=== PATIENT | male | born 1985 | race Two or more races ===

== ENCOUNTER 2021-03-02 03:28 | Inpatient (IN) | payer OTHER ==
[2021-03-02 04:37] VITALS: BMI 43.5
[2021-03-02] MEDS ORDERED: ACETAMINOPHEN 1000 MG/100 ML VIAL (NON FORMULARY) IVPB ONE (04:42)
[2021-03-02] MEDS ORDERED: SODIUM CHLORIDE 0.9% 1000 ML INFUS.BAG IV ONE (04:43)
[2021-03-02 04:50] LABS: BASO % 0.4 % (0-2.0); EOS % 0.1 % (0-4.5); HEMATOCRIT 42.2 % (35.4-49); HEMOGLOBIN 14.8 GM/dL (11.7-16.9); LYMPH % 33.6 % (8-40); MCH 33.5 pg (25.7-33.7); MCHC 35.2 g/dl (32.0-35.9); MEAN CELL VOLUME 95.3 fl (80-96); MEAN PLT VOLUME 9.7 fl (7.5-11.1); MONO % 6.2 % (3.8-10.2); NEUT % 59.7 % (42.8-82.8); PLATELET COUNT 136 10^3/uL (134-434); RBC 4.42 M/mm3 (4.00-5.60); RDW 12.8 % (11.9-15.9); WHITE BLOOD COUNT 4.3 K/mm3 (4.0-10.0)
[2021-03-02 04:57] LABS: INR 1.25 (0.83-1.09); PROTHROMBIN TIME (PATIENT) 15.3 SEC (9.7-13.0); VENOUS BASE EXCESS -0.3 mmol/L (-2-2); VENOUS O2 SATURATION 86.8 % (70-80); VENOUS PCO2 42.1 mmHg (38-52); VENOUS PH 7.388 (7.310-7.410)
[2021-03-02 05:00] LABS: ACTIVATED PTT 30.3 SECONDS (25.2-36.5)
[2021-03-02 05:09] LABS: CALCIUM 7.9 mg/dL (8.5-10.1)
[2021-03-02 05:10] LABS: ALBUMIN 3.2 g/dl (3.4-5.0); BLOOD UREA NITROGEN 9.9 mg/dL (7-18)
[2021-03-02 05:12] LABS: BILIRUBIN,DIRECT 0.1 mg/dL (0.0-0.2)
[2021-03-02 05:13] LABS: CREATININE 0.9 mg/dL (0.55-1.3)
[2021-03-02 05:14] LABS: BILIRUBIN,TOTAL 0.4 mg/dL (0.2-1)
[2021-03-02] MEDS ORDERED: DEXAMETHASONE SOD PHOSPHATE 10 MG/1 ML VIAL IVPUSH ONE (05:51)
[2021-03-02 06:59] LABS: EPI CELLS 12 /uL (0-25.1); HYALINE CASTS 4 /uL (0-3.1); URINE APPEARANCE CLEAR; URINE BACTERIA 111 /uL (0-1359); URINE BILIRUBIN NEGATIVE (NEGATIVE); URINE COLOR YELLOW; URINE GLUCOSE (UA) NEGATIVE (NEGATIVE); URINE KETONE TRACE (NEGATIVE); URINE LEUK ESTERASE NEGATIVE (NEGATIVE); URINE NITRITE NEGATIVE (NEGATIVE); URINE PROTEIN 1+ (NEGATIVE); URINE RBC 29 /uL (0-23.9); URINE WBC 10 /uL (0-25.8)
[2021-03-02] MEDS ORDERED: ALBUTEROL SO4 HFA INHALER IH PRN (08:15)
[2021-03-02] MEDS ORDERED: ASPIRIN 81 MG CHEWABLE TABLETS ONE (09:39)
[2021-03-02] MEDS ORDERED: amLODIPine BESYLATE 5 MG TABLET (FP) ONE (09:39)
[2021-03-02] MEDS ORDERED: ENOXAPARIN NA (PORCINE) 40 MG/0.4 ML DISP.SYRIN SQ ONE (09:40)
[2021-03-02] MEDS ORDERED: HYDROCHLOROTHIAZIDE 25 MG TABLET (FP) ONE (09:40)
[2021-03-02] MEDS ORDERED: FAMOTIDINE 20 MG TABLET ONE (09:40)
[2021-03-02] MEDS ORDERED: CLOPIDOGREL BISULFATE 75 MG TABLET (FP) ONE (09:40)
[2021-03-02] MEDS ORDERED: ZINC SULFATE 220 MG CAPSULE (FP) ONE (09:40)
[2021-03-02] MEDS ORDERED: VALSARTAN 80 MG TABLET ONE (09:43)
[2021-03-02] MEDS: amLODIPine BESYLATE 10 MG TABLET (FP) PO SCH (10:08)
[2021-03-02] MEDS: CLOPIDOGREL BISULFATE 75 MG TABLET (FP) PO SCH (10:08)
[2021-03-02] MEDS: FAMOTIDINE 20 MG TABLET PO SCH (10:08)
[2021-03-02] MEDS: ZINC SULFATE 220 MG CAPSULE (FP) PO SCH (10:08)
[2021-03-02] MEDS: ENOXAPARIN NA (PORCINE) 40 MG/0.4 ML DISP.SYRIN SQ SCH (10:08)
[2021-03-02] MEDS: CARVEDILOL 25 MG TABLET (FP) PO SCH ×2 (10:09→21:38)
[2021-03-02] MEDS: ASPIRIN 81 MG CHEWABLE TABLETS PO SCH (10:09)
[2021-03-02] MEDS: HYDROCHLOROTHIAZIDE 25 MG TABLET (FP) PO SCH (10:09)
[2021-03-02] MEDS: VALSARTAN 160 MG TABLET PO SCH (10:09)
[2021-03-02] MEDS ORDERED: CHOLECALCIFEROL (VIT D3) 1,000 UNIT (25 MCG) TABLET ONE (12:06)
[2021-03-02] MEDS ORDERED: ASCORBIC ACID 500 MG TABLET (FP) ONE (12:06)
[2021-03-02] MEDS ORDERED: PT OWN MED DRAWER 7, Y5N ONE ×2 (12:07→15:02)
[2021-03-02] MEDS ORDERED: ALBUTEROL SO4 HFA INHALER IH ONE (12:14)
[2021-03-02] MEDS: CHOLECALCIFEROL (VIT D3) 5000 UNITS (125 MCG) CAP PO SCH (12:24)
[2021-03-02] MEDS: ALBUTEROL SO4 HFA INHALER IH SCH ×3 (12:24→21:37)
[2021-03-02] MEDS: ASCORBIC ACID 250 MG TABLET (FP) PO SCH (12:24)
[2021-03-02] MEDS: BUDESONIDE/FORMETEROL FUMARATE 80/4.5 mcg INHALER IH SCH ×2 (13:02→21:39)
[2021-03-02] MEDS ORDERED: REMDESIVIR 200 MG in SODIUM CHLORIDE 250 ML IVPB ONE (14:00)
[2021-03-02] MEDS ORDERED: BARICITINIB 2 MG TABLET PO ONE ×2 (14:00)
[2021-03-02] MEDS ORDERED: ROSUVASTATIN CA 10 MG TABLET (FP) ONE (21:35)
[2021-03-02] MEDS: ROSUVASTATIN CA 20 MG TABLET (FP) PO SCH (21:38)
[2021-03-02] MEDS: ACETAMINOPHEN 500 MG TABLET (FP) PO PRN (21:38)
[2021-03-03] MEDS: guaiFENesin/D-METHORPHAN HB 10 ML UNIT-DOSE CUPS PO PRN ×2 (04:22→21:45)
[2021-03-03] MEDS: ACETAMINOPHEN 500 MG TABLET (FP) PO PRN ×2 (04:22→17:39)
[2021-03-03 06:30] LABS: HEMATOCRIT 39.9 % (35.4-49); HEMOGLOBIN 13.8 GM/dL (11.7-16.9); MCH 33.5 pg (25.7-33.7); MCHC 34.7 g/dl (32.0-35.9); MEAN CELL VOLUME 96.8 fl (80-96); PLATELET COUNT 138 10^3/uL (134-434); RBC 4.12 M/mm3 (4.00-5.60); RDW 12.6 % (11.9-15.9); WHITE BLOOD COUNT 4.1 K/mm3 (4.0-10.0)
[2021-03-03 06:46] LABS: CALCIUM 7.7 mg/dL (8.5-10.1)
[2021-03-03 06:47] LABS: ALBUMIN 2.8 g/dl (3.4-5.0); BLOOD UREA NITROGEN 11.6 mg/dL (7-18); MAGNESIUM 1.9 mg/dL (1.8-2.4)
[2021-03-03 06:50] LABS: CREATININE 0.7 mg/dL (0.55-1.3); PHOSPHOROUS 4.2 mg/dL (2.5-4.9)
[2021-03-03 06:51] LABS: BILIRUBIN,TOTAL 0.5 mg/dL (0.2-1); TOT PROT 6.2 g/dl (6.4-8.2)
[2021-03-03] MEDS: ALBUTEROL SO4 HFA INHALER IH SCH ×4 (08:38→21:05)
[2021-03-03] MEDS ORDERED: guaiFENesin/CODEINE 10 ML UNIT-DOSE CUPS PO ONE (09:05)
[2021-03-03] MEDS ORDERED: PT OWN MED DRAWER 7, Y5N ONE (09:55)
[2021-03-03] MEDS: ZINC SULFATE 220 MG CAPSULE (FP) PO SCH (09:56)
[2021-03-03] MEDS: CLOPIDOGREL BISULFATE 75 MG TABLET (FP) PO SCH (09:56)
[2021-03-03] MEDS: amLODIPine BESYLATE 10 MG TABLET (FP) PO SCH (09:56)
[2021-03-03] MEDS: ASPIRIN 81 MG CHEWABLE TABLETS PO SCH (09:56)
[2021-03-03] MEDS: ENOXAPARIN NA (PORCINE) 40 MG/0.4 ML DISP.SYRIN SQ SCH (09:56)
[2021-03-03] MEDS: VALSARTAN 160 MG TABLET PO SCH (09:56)
[2021-03-03] MEDS: HYDROCHLOROTHIAZIDE 25 MG TABLET (FP) PO SCH (09:56)
[2021-03-03] MEDS: CHOLECALCIFEROL (VIT D3) 5000 UNITS (125 MCG) CAP PO SCH (09:56)
[2021-03-03] MEDS: FAMOTIDINE 20 MG TABLET PO SCH (09:56)
[2021-03-03] MEDS: BUDESONIDE/FORMETEROL FUMARATE 80/4.5 mcg INHALER IH SCH ×2 (09:56→21:46)
[2021-03-03] MEDS: CARVEDILOL 25 MG TABLET (FP) PO SCH ×2 (09:56→21:46)
[2021-03-03] MEDS: ASCORBIC ACID 250 MG TABLET (FP) PO SCH (09:56)
[2021-03-03] MEDS: DEXAMETHASONE SOD PHOSPHATE 10 MG/1 ML VIAL IVPUSH SCH (09:57)
[2021-03-03] MEDS: REMDESIVIR 100 MG in SODIUM CHLORIDE 250 ML IVPB SCH (14:14)
[2021-03-03] MEDS: ROSUVASTATIN CA 20 MG TABLET (FP) PO SCH (21:45)
[2021-03-03] MEDS: MELATONIN 5 MG TABLETS PO PRN (21:46)
[2021-03-04 07:32] LABS: BASO % 0.2 % (0-2.0); HEMATOCRIT 41.3 % (35.4-49); HEMOGLOBIN 14.2 GM/dL (11.7-16.9); LYMPH % 58.6 % (8-40); MCH 33.3 pg (25.7-33.7); MCHC 34.5 g/dl (32.0-35.9); MEAN CELL VOLUME 96.6 fl (80-96); MEAN PLT VOLUME 10.4 fl (7.5-11.1); MONO % 12.7 % (3.8-10.2); NEUT % 28.5 % (42.8-82.8); PLATELET COUNT 152 10^3/uL (134-434); RBC 4.28 M/mm3 (4.00-5.60); RDW 12.7 % (11.9-15.9); WHITE BLOOD COUNT 3.2 K/mm3 (4.0-10.0)
[2021-03-04 07:56] LABS: ALBUMIN 3.1 g/dl (3.4-5.0)
[2021-03-04 07:57] LABS: BILIRUBIN,TOTAL 0.5 mg/dL (0.2-1); CALCIUM 7.7 mg/dL (8.5-10.1); MAGNESIUM 2.1 mg/dL (1.8-2.4); TOT PROT 6.8 g/dl (6.4-8.2)
[2021-03-04 07:59] LABS: CREATININE 0.5 mg/dL (0.55-1.3)
[2021-03-04] MEDS ORDERED: PT OWN MED DRAWER 7, Y5N ONE (09:01)
[2021-03-04] MEDS: VALSARTAN 160 MG TABLET PO SCH (09:40)
[2021-03-04] MEDS: CHOLECALCIFEROL (VIT D3) 5000 UNITS (125 MCG) CAP PO SCH (09:40)
[2021-03-04] MEDS: guaiFENesin/D-METHORPHAN HB 10 ML UNIT-DOSE CUPS PO PRN ×2 (09:40→21:34)
[2021-03-04] MEDS: amLODIPine BESYLATE 10 MG TABLET (FP) PO SCH (09:40)
[2021-03-04] MEDS: ALBUTEROL SO4 HFA INHALER IH SCH ×4 (09:40→21:30)
[2021-03-04] MEDS: ASCORBIC ACID 250 MG TABLET (FP) PO SCH (09:40)
[2021-03-04] MEDS: CARVEDILOL 25 MG TABLET (FP) PO SCH ×2 (09:40→21:37)
[2021-03-04] MEDS: ASPIRIN 81 MG CHEWABLE TABLETS PO SCH (09:40)
[2021-03-04] MEDS: ENOXAPARIN NA (PORCINE) 40 MG/0.4 ML DISP.SYRIN SQ SCH (09:41)
[2021-03-04] MEDS: HYDROCHLOROTHIAZIDE 25 MG TABLET (FP) PO SCH (09:41)
[2021-03-04] MEDS: CLOPIDOGREL BISULFATE 75 MG TABLET (FP) PO SCH (09:41)
[2021-03-04] MEDS: ZINC SULFATE 220 MG CAPSULE (FP) PO SCH (09:41)
[2021-03-04] MEDS: FAMOTIDINE 20 MG TABLET PO SCH (09:41)
[2021-03-04] MEDS: DEXAMETHASONE SOD PHOSPHATE 10 MG/1 ML VIAL IVPUSH SCH (09:41)
[2021-03-04] MEDS: BUDESONIDE/FORMETEROL FUMARATE 80/4.5 mcg INHALER IH SCH ×2 (09:43→21:38)
[2021-03-04] MEDS: REMDESIVIR 100 MG in SODIUM CHLORIDE 250 ML IVPB SCH (13:52)
[2021-03-04] MEDS: MELATONIN 5 MG TABLETS PO PRN (21:37)
[2021-03-04] MEDS: ROSUVASTATIN CA 20 MG TABLET (FP) PO SCH (21:37)
[2021-03-05 06:58] LABS: BASO % 0.4 % (0-2.0); HEMATOCRIT 44.4 % (35.4-49); HEMOGLOBIN 15.3 GM/dL (11.7-16.9); LYMPH % 46.4 % (8-40); MCHC 34.5 g/dl (32.0-35.9); MEAN CELL VOLUME 95.7 fl (80-96); MEAN PLT VOLUME 10.1 fl (7.5-11.1); NEUT % 37.2 % (42.8-82.8); PLATELET COUNT 152 10^3/uL (134-434); RBC 4.63 M/mm3 (4.00-5.60); RDW 12.8 % (11.9-15.9); WHITE BLOOD COUNT 4.2 K/mm3 (4.0-10.0)
[2021-03-05 07:07] LABS: ALBUMIN 2.9 g/dl (3.4-5.0); BLOOD UREA NITROGEN 13.7 mg/dL (7-18); CALCIUM 8.1 mg/dL (8.5-10.1)
[2021-03-05 07:10] LABS: CREATININE 0.6 mg/dL (0.55-1.3)
[2021-03-05 07:12] LABS: BILIRUBIN,TOTAL 0.6 mg/dL (0.2-1); TOT PROT 6.7 g/dl (6.4-8.2)
[2021-03-05] MEDS ORDERED: PT OWN MED DRAWER 7, Y5N ONE (10:35)
[2021-03-05] MEDS: HYDROCHLOROTHIAZIDE 25 MG TABLET (FP) PO SCH (10:46)
[2021-03-05] MEDS: VALSARTAN 160 MG TABLET PO SCH (10:46)
[2021-03-05] MEDS: ASPIRIN 81 MG CHEWABLE TABLETS PO SCH (10:46)
[2021-03-05] MEDS: ZINC SULFATE 220 MG CAPSULE (FP) PO SCH (10:46)
[2021-03-05] MEDS: CARVEDILOL 25 MG TABLET (FP) PO SCH ×2 (10:46→21:50)
[2021-03-05] MEDS: amLODIPine BESYLATE 10 MG TABLET (FP) PO SCH (10:46)
[2021-03-05] MEDS: ENOXAPARIN NA (PORCINE) 40 MG/0.4 ML DISP.SYRIN SQ SCH (10:47)
[2021-03-05] MEDS: CLOPIDOGREL BISULFATE 75 MG TABLET (FP) PO SCH (10:47)
[2021-03-05] MEDS: ALBUTEROL SO4 HFA INHALER IH SCH ×4 (10:47→21:49)
[2021-03-05] MEDS: BUDESONIDE/FORMETEROL FUMARATE 80/4.5 mcg INHALER IH SCH ×2 (10:47→21:50)
[2021-03-05] MEDS: FAMOTIDINE 20 MG TABLET PO SCH (10:47)
[2021-03-05] MEDS: DEXAMETHASONE SOD PHOSPHATE 10 MG/1 ML VIAL IVPUSH SCH (10:47)
[2021-03-05] MEDS: ASCORBIC ACID 250 MG TABLET (FP) PO SCH (10:48)
[2021-03-05] MEDS: CHOLECALCIFEROL (VIT D3) 5000 UNITS (125 MCG) CAP PO SCH (10:48)
[2021-03-05] MEDS: REMDESIVIR 100 MG in SODIUM CHLORIDE 250 ML IVPB SCH (14:58)
[2021-03-05] MEDS: MELATONIN 5 MG TABLETS PO PRN (21:50)
[2021-03-05] MEDS: ROSUVASTATIN CA 20 MG TABLET (FP) PO SCH (21:50)
[2021-03-05] MEDS: guaiFENesin/D-METHORPHAN HB 10 ML UNIT-DOSE CUPS PO PRN (21:50)
[2021-03-06 07:28] LABS: BASO % 0.2 % (0-2.0); HEMATOCRIT 42.1 % (35.4-49); HEMOGLOBIN 14.5 GM/dL (11.7-16.9); LYMPH % 37.7 % (8-40); MCHC 34.3 g/dl (32.0-35.9); MEAN PLT VOLUME 10.3 fl (7.5-11.1); MONO % 15.5 % (3.8-10.2); NEUT % 46.6 % (42.8-82.8); PLATELET COUNT 179 10^3/uL (134-434); RBC 4.39 M/mm3 (4.00-5.60); RDW 12.5 % (11.9-15.9)
[2021-03-06 07:54] LABS: ALBUMIN 2.9 g/dl (3.4-5.0); BLOOD UREA NITROGEN 13.3 mg/dL (7-18); CALCIUM 8.1 mg/dL (8.5-10.1); MAGNESIUM 2.2 mg/dL (1.8-2.4)
[2021-03-06 07:57] LABS: BILIRUBIN,DIRECT 0.2 mg/dL (0.0-0.2); CREATININE 0.5 mg/dL (0.55-1.3)
[2021-03-06 07:59] LABS: BILIRUBIN,TOTAL 0.7 mg/dL (0.2-1); TOT PROT 6.7 g/dl (6.4-8.2)
[2021-03-06 08:36] LABS: PLATELET ESTIMATE NORMAL
[2021-03-06] MEDS ORDERED: PT OWN MED DRAWER 7, Y5N ONE (08:40)
[2021-03-06] MEDS: FAMOTIDINE 20 MG TABLET PO SCH (09:42)
[2021-03-06] MEDS: ASPIRIN 81 MG CHEWABLE TABLETS PO SCH (09:42)
[2021-03-06] MEDS: ZINC SULFATE 220 MG CAPSULE (FP) PO SCH (09:42)
[2021-03-06] MEDS: ALBUTEROL SO4 HFA INHALER IH SCH ×3 (09:42→17:07)
[2021-03-06] MEDS: HYDROCHLOROTHIAZIDE 25 MG TABLET (FP) PO SCH (09:43)
[2021-03-06] MEDS: VALSARTAN 160 MG TABLET PO SCH (09:43)
[2021-03-06] MEDS: CARVEDILOL 25 MG TABLET (FP) PO SCH ×2 (09:43→11:16)
[2021-03-06] MEDS: DEXAMETHASONE SOD PHOSPHATE 10 MG/1 ML VIAL IVPUSH SCH (09:43)
[2021-03-06] MEDS: amLODIPine BESYLATE 10 MG TABLET (FP) PO SCH (09:43)
[2021-03-06] MEDS: CLOPIDOGREL BISULFATE 75 MG TABLET (FP) PO SCH (09:43)
[2021-03-06] MEDS: ENOXAPARIN NA (PORCINE) 40 MG/0.4 ML DISP.SYRIN SQ SCH (09:44)
[2021-03-06] MEDS: BUDESONIDE/FORMETEROL FUMARATE 80/4.5 mcg INHALER IH SCH (09:44)
[2021-03-06] MEDS: CHOLECALCIFEROL (VIT D3) 5000 UNITS (125 MCG) CAP PO SCH (09:45)
[2021-03-06] MEDS: ASCORBIC ACID 250 MG TABLET (FP) PO SCH (09:45)
[2021-03-06 10:23] VITALS: TEMP 98.2
[2021-03-06] MEDS: REMDESIVIR 100 MG in SODIUM CHLORIDE 250 ML IVPB SCH (13:48)
[2021-03-06 14:00] VITALS: BP 124/68; PULSE 62
== END 2021-03-06 17:49 | disposition home or self-care (01) | DRG 137 ==
LOC: JER 03:28 → JERBED 06:04 → J4S 20:43
PROVIDERS: ADMIT Internal Medicine; ATTEND Nurse Practitioner Family
PROC: XW033E5 Introduction of Remdesivir Anti-infective into Peripheral Vein, Percutaneous Approach, New Technology Group 5 (ICD-10-PCS; principal; 2021-03-02)
DX: U07.1 COVID-19 (principal); J96.01 Acute respiratory failure with hypoxia; J12.82 Pneumonia due to coronavirus disease 2019; E66.01 Morbid (severe) obesity due to excess calories; Z68.41 Body mass index [BMI] 40.0-44.9, adult; E78.5 Hyperlipidemia, unspecified; I10 Essential (primary) hypertension; I25.10 Atherosclerotic heart disease of native coronary artery without angina pectoris; I25.2 Old myocardial infarction; R19.7 Diarrhea, unspecified
CPT/HCPCS: 36415; 71045-TC-FY; 80053; 80076; 81003; 82248; 82550; 82553; 82728; 82803; 83605; 83615; 83735; 84100; 84484; 85025; 85027; 85379; 85610; 85730; 86140; 87040; 87086; 87804; 93005; 93010; 94010; 94761; 99285-25; C9399; C9803; J0131; J1100; U0003; U0005

== ENCOUNTER 2021-11-22 09:10 | Emergency (ER) | payer OTHER ==
[2021-11-22 09:16] VITALS: BP 140/87; PULSE 89; TEMP 98.8; BMI 43.8
== END 2021-11-22 11:06 | disposition home or self-care (01) ==
LOC: JER 09:10
DX: R05.1 Acute cough (principal)
CPT/HCPCS: 0241U-QW; 99283-25